=== PATIENT | female | born 1945 | race Caucasian/White ===

== ENCOUNTER 2016-12-05 13:58 | Emergency (ER) | payer OTHER ==
[~2016-12-05] VITALS: Ht 157.5 cm; Wt 68.4 kg
[~2016-12-05 13:58] MED LIST: AVENTYL,PAMELOR50 MG PO; Advair HFA 115/21 IH; CALCIO DEL MAR500 MG PO; Cipro PO; Cymbalta PO; Ecotrin PO; Fioricet,Esgic,Repan PO; Flagyl PO; Levaquin PO; Levothroid,Synthroid PO; Procardia XL,Adalat PO; Ritalin PO; Sudafed PO; Tylenol Extra Streng PO; Ultram PO; Zovirax PO
[2016-12-05] MEDS ORDERED: PREDNISONE1 MG PO (14:14)
[2016-12-05] MEDS ORDERED: LISINOPRIL5 MG PO (14:15)
[2016-12-05] MEDS ORDERED: LEVO-T75 MCG PO (14:15)
[2016-12-05] MEDS ORDERED: TREXALL10 MG PO (14:15)
[2016-12-05] MEDS ORDERED: FOLIC ACID1 MG PO (14:15)
[2016-12-05] MEDS ORDERED: CYMBALTA60 MG PO (14:16)
[2016-12-05] MEDS ORDERED: PRILOSEC20 MG PO (14:16)
[2016-12-05] MEDS ORDERED: ZOVIRAX400 MG PO (14:16)
[2016-12-05] MEDS ORDERED: LORAZEPAM2 MG PO (14:16)
[2016-12-05] MEDS ORDERED: TYLENOL EXTRA500 MG PO (14:17)
[2016-12-05] MEDS ORDERED: TRAMADOL HCL50 MG PO (14:17)
[2016-12-05] MEDS ORDERED: MELATONIN5 M4 PO (14:18)
[2016-12-05] MEDS ORDERED: VITAMIN D31000 UNIT PO (14:18)
[2016-12-05] MEDS ORDERED: DAILY VALUE1 EACH PO (14:18)
[2016-12-05] MEDS ORDERED: MIRALAX17 GM PO (14:18)
[2016-12-05] MEDS ORDERED: MECLIZINE HCL12.5 M1 PO (14:19)
[2016-12-05] MEDS ORDERED: AUGMENTIN875 MG PO (15:40)
[2016-12-05 16:03] VITALS: BP 160/67
== END 2016-12-05 16:04 | disposition home or self-care (01) ==
LOC: EME 13:58
PROC: 3E0234Z Introduction of Serum, Toxoid and Vaccine into Muscle, Percutaneous Approach (ICD-10-PCS; principal; 2016-12-05)
DX: L03.012 Cellulitis of left finger (principal); Z23 Encounter for immunization; W55.01XA Bitten by cat, initial encounter; Z88.2 Allergy status to sulfonamides; Z88.8 Allergy status to other drugs, medicaments and biological substances
CPT/HCPCS: 73140; 99281; 99283

== ENCOUNTER 2017-10-04 08:22 | Day surgery (SDC) | payer OTHER ==
[~2017-10-04] VITALS: Ht 157.5 cm; Wt 68.9 kg
[~2017-10-04 08:22] MED LIST changes: +AUGMENTIN875 MG PO; +CALCIUM CITRAT200 MG PO; +CALPHRON667 MG PO; +CLARITIN10 M3 PO; +CYMBALTA60 MG PO; +DAILY VALUE1 EACH PO; +ERYGEL 2% GEL60 GM TP; +FEOSOL325 MG PO; +FOLIC ACID1 MG PO; +LEVO-T75 MCG PO; +LORAZEPAM2 MG PO; +MAGNESIUM250 MG PO; +MECLIZINE HCL12.5 M1 PO; +MELATONIN5 M4 PO; +METAMUCIL PACK3.4 GM PO; +MIRALAX17 GM PO; +NIZORAL 2% CREA15 GM TP; +PREDNISONE1 MG PO; +PRILOSEC20 MG PO; +TRAMADOL HCL50 MG PO; +TREXALL10 MG PO; +TYLENOL EXTRA500 MG PO; +VENTOLIN HFA18 GM IH; +VITAMIN D35000 UNIT PO; +ZESTRIL10 MG PO; +ZOVIRAX400 MG PO
[2017-10-04 09:02] VITALS: BP 139/68
[2017-10-04 10:55] VITALS: BP 158/71
[2017-10-04 11:54] VITALS: BP 145/64
== END 2017-10-04 11:50 | disposition home or self-care (01) ==
LOC: SDC 08:22
PROC: 08B53ZZ Excision of Left Vitreous, Percutaneous Approach (ICD-10-PCS; principal; 2017-10-04)
DX: H43.392 Other vitreous opacities, left eye (principal); H43.812 Vitreous degeneration, left eye; I25.10 Atherosclerotic heart disease of native coronary artery without angina pectoris; I10 Essential (primary) hypertension; M06.9 Rheumatoid arthritis, unspecified; M35.3 Polymyalgia rheumatica; E03.9 Hypothyroidism, unspecified; K21.9 Gastro-esophageal reflux disease without esophagitis; J44.9 Chronic obstructive pulmonary disease, unspecified; Z98.1 Arthrodesis status
CPT/HCPCS: 87641; J0690; J1100; J2250; J2405; J3300

== ENCOUNTER → 2018-02-08 | Outpatient (CLI) | payer OTHER ==
[~2018-02-08] MED LIST changes: +LORCET 5-325 M1 EACH PO; +TURMERIC500 M2 PO; -ZESTRIL10 MG PO; +ZESTRIL20 MG PO
== END | disposition home or self-care (01) ==
LOC: CDC 08:41
DX: Z01.810 Encounter for preprocedural cardiovascular examination (principal); S82.121A Displaced fracture of lateral condyle of right tibia, initial encounter for closed fracture; S92.352A Displaced fracture of fifth metatarsal bone, left foot, initial encounter for closed fracture
CPT/HCPCS: 93000

== ENCOUNTER 2018-02-10 06:33 | Day surgery (SDC) | payer OTHER ==
[~2018-02-10] VITALS: Ht 157.5 cm; Wt 70.3 kg
[2018-02-10 07:49] VITALS: BP 136/65
[2018-02-10 14:50] VITALS: BP 160/71
[2018-02-10 15:55] VITALS: BP 146/68
[2018-02-10 17:29] VITALS: BP 122/58
== END 2018-02-10 17:30 | disposition home or self-care (01) ==
LOC: SDC
DX: S82.141A Displaced bicondylar fracture of right tibia, initial encounter for closed fracture (principal); S92.352A Displaced fracture of fifth metatarsal bone, left foot, initial encounter for closed fracture; W17.89XA Other fall from one level to another, initial encounter; Y93.19 Activity, other involving water and watercraft; Y92.828 Other wilderness area as the place of occurrence of the external cause; J44.9 Chronic obstructive pulmonary disease, unspecified; I10 Essential (primary) hypertension; E03.9 Hypothyroidism, unspecified; K21.9 Gastro-esophageal reflux disease without esophagitis; Z88.2 Allergy status to sulfonamides; Z88.8 Allergy status to other drugs, medicaments and biological substances
CPT/HCPCS: 73560; 73630; 76000; 87641; C1713; J0131; J0330; J0690; J1100; J1170; J1720; J2250; J2405; J2710; J2795; J3010; J7120; J7643; S0020